=== PATIENT | male | born 1990 | race Two or more races ===

== ENCOUNTER 2024-10-01 16:35 | Emergency (ER) | payer OTHER ==
[~2024-10-01] VITALS: Ht 175.3 cm; Wt 81.7 kg
[2024-10-01] MEDS: SODIUM CHLORIDE 0.9% 1,000 ML IV ONE ×3 (16:45→22:40)
--- NOTE | 2024-10-01 16:48 | ED.PDOC ---
GI ASSESSMENT HPI Comments HPI: Poor Historian. 34-year-old male presents to emergency department for one day history of right sided mid axillary line below the ribcage pain that radiates to his right groin right testicle area. Patient has associated nausea and vomiting nonbilious nonbloody. Patient denies any diarrhea. Denies any urinary symptoms. He was able to void urine 2 hours ago that was normal in color. Pain is constant. Pain is better when he lays flat on his back. Patient tried some [place] at home for his pain without significant improvement. Past Medcial History: Denies any Past Surgical History: Left wrist surgery. REVIEW OF SYSTEMS: CONSTITUTIONAL: Denies acute: fever, diaphoresis, chills, generalized weakness. HEAD: Denies acute: headache, photophobia Eyes: Denies acute: Double vision, vision loss, eye pain, eye discharge. EARS: Denies acute: tinnitus, hearing loss, ear discharge, ear pain, THROAT: Denies acute: sore throat, swelling, difficulty swallowing , pain with swallowing, change in voice. NECK: Denies acute: neck pain, neck swelling, stiff neck. HEART: Denies acute : chest pain, palpitations, LUNGS: Denies acute: SOB, wheezing, cough, hemoptysis ABDOMEN: Denies acute: diarrhea, melena , hematemesis, hematochezia SKIN: Denies acute: rash, redness, lesions, itchiness. EXTREMITIES: Denies acute: calf pain, numbness, tingling, weakness, denies pain in extremity. Denies acute: Low back pain. Neuro: Denies acute: focal neurological deficit, motor or sensory focal neurological deficit, tremors, seizure like activity, confusion, dizziness, change in mental status, loss of bowel or bladder function, cauda equina like symptoms. : Denies acute: dysuria, hematuria, flank pain, increase in urinary frequency. PSYCH: Denies acute: hallucination, suicidal ideation, homicidal ideation. PHYSICAL EXAM: General: Moderate acute distress, awake and alert. Head: normocephalic, atraumatic. Neck: supple, trachea is midline, no swelling. Throat: Normal phonation. Eyes:, no erythema, no purulent discharge, no proptosis, no icterus. Heart: regular rate, regular rhythm, no significant murmur appreciated. Lungs: no apparent respiratory distress, Able to speak in full sentences. No wheezing, no rhonchi, no crackles. No stridors Clear to auscultation bilaterally. Abdomen: Right upper quadrant tender to palpation, non distended, soft, no guarding, no rebound, + bowel sounds. Neuro: Awake, Alert, oriented to name, self, situation, follows commands GCS=15. Speech is normal. Skin: no petechia, no purpura, no cyanosis, non-pale, not jaundice. Lower extremities: --no - Pitting edema no deformity, no focal swelling, no calf TTP. Makes eye contact. moves all four extremities. Face: no apparent facial droop. Minimal right CVA tenderness to percussion . Ambulating in the ED independently. ED course: As of this minutes 175, all labs are still pending. As of this minute 185, all labs are still pending. Chief Complaint: Abdominal Pain Time Seen by MD: 16:38 Reviewed Notes: Nurses Notes, Medications, Allergies Allergies: Coded Allergies: NO KNOWN ALLERGIES (Unverified , 10/01/24) Information Source: Patient Was a procedure done? Was a procedure done?: No X-Ray, Labs, Meds, VS Vital Signs Date Time Temp Pulse Resp B/P (MAP) Pulse Ox O2 Delivery O2 Flow Rate FiO2 10/01/24 19:50 98 Room Air* 0 21 10/01/24 19:41 97.9 70 16 140/90 (107) 98 97.9 10/01/24 16:43 97.7 72 20 140/82 (101) 100 Lab Test 10/01/24 23:44 10/01/24 21:31 10/01/24 20:36 10/01/24 19:11 Range/Units Lactic Acid Level 2.6 *H 2.8 *H 2.2 *H 0.4-2.0 mmol/L Urine Color Colorless Yellow Urine Clarity Turbid H Clear Urine pH 7.0 5.0-9.0 Urine Specific [place] 1.016 1.001-1.035 Urine Protein Negative Negative Urine Ketones Negative Negative Urine Blood 2+ H Negative /uL Urine Nitrite Negative Negative Urine Bilirubin Negative Negative Urine Urobilinogen Normal Negative mg/dL Urine Leukocyte Esterase Negative Negative /uL Urine RBC 141 0 - 3 /hpf Urine WBC 1 0 - 3 /hpf Urine Squamous Epithelial Cells Few <5 /hpf Urine Amorphous Crystals Mod None Seen /hpf Urine Bacteria None seen None Seen /hpf Urine Glucose Trace Normal mg/dL Urine Opiates Screen Neg NEGATIVE Urine Fentanyl Screen Neg NEGATIVE Urine Barbiturates Screen Neg NEGATIVE Urine Phencyclidine Screen Neg NEGATIVE Urine Amphetamines Screen Neg NEGATIVE Urine Benzodiazepines Screen Neg NEGATIVE Urine Cocaine Screen Neg NEGATIVE Urine Cannabinoids Screen Neg NEGATIVE Chlamydia trachomatis (MASTER) Pending Neisseria gonorrhoeae (MASTER) Pending Test 10/01/24 17:52 10/01/24 17:39 Range/Units SARS-CoV-2 Antigen (Rapid) Negative NEGATIVE White Blood Count 14.7 H 4.4-10.8 10^3/uL Red Blood Count 5.15 4.5-5.90 10^6/uL Hemoglobin 14.8 13.5-17.5 g/dL Hematocrit 43.7 41.0-53.0 % Mean Corpuscular Volume 84.8 80.0-100.0 fL Mean Corpuscular Hemoglobin 28.8 28.0-32.0 pg Mean Corpuscular Hemoglobin Concent 33.9 32.0-36.0 g/dL Red Cell Distribution Width 13.1 11.8-14.3 % Platelet Count 294 140-450 10^3/uL Mean Platelet Volume 7.3 6.9-10.8 fL Neutrophils (%) (Auto) 82.5 H 37.0-80.0 % Lymphocytes (%) (Auto) 10.1 10.0-50.0 % Monocytes (%) (Auto) 7.1 0.0-12.0 % Eosinophils (%) (Auto) 0.2 0.0-7.0 % Basophils (%) (Auto) 0.1 0.0-2.0 % Neutrophils # (Auto) 12.2 H 1.6-8.6 10 ^3/uL Lymphocytes # (Auto) 1.5 0.4-5.4 10 ^3/uL Monocytes # (Auto) 1.0 0-1.3 10 ^3/uL Eosinophils # (Auto) 0 0-0.8 10 ^3/uL Basophils # (Auto) 0 0-0.2 10 ^3/uL Nucleated Red Blood Cells 0.0 % Sodium Level 137 136-145 mmol/L Potassium Level 3.8 3.5-5.1 mmol/L Chloride Level 102 98-107 mmol/L Carbon Dioxide Level 29 20-31 mmol/L Anion Gap 6 5-15 Blood Urea Nitrogen 18 9-23 mg/dL Creatinine 1.08 0.700-1.30 mg/dL Glomerular Filtration Rate Calc 93 >90 mL/min BUN/Creatinine Ratio 16.7 10.0-20.0 Serum Glucose 99 74-106 mg/dL Lactic Acid Level 3.0 *H 0.4-2.0 mmol/L Calcium Level 9.9 8.7-10.4 mg/dL Total Bilirubin 0.4 0.2-1.0 mg/dL Aspartate Amino Transferase (AST) 38 13-40 U/L Alanine Aminotransferase (ALT) 117 H 7-40 U/L Alkaline Phosphatase 78 46-116 U/L Total Protein 6.3 5.7-8.2 g/dL Albumin 4.1 3.2-4.8 g/dL Lipase 25 12-53 U/L Current Medications Medications (Trade) Dose Ordered Sig/Regina Route Start Time Stop Time Status Last Admin Sodium Chloride 1,000 ml @ 1,000 mls/hr Q1H ONCE IV 10/01/24 16:45 10/01/24 17:44 DC 10/01/24 16:45 Ondansetron HCl (Zofran) 8 mg ONCE ONCE IV 10/01/24 16:45 10/01/24 16:47 DC 10/01/24 17:31 Acetaminophen/ Hydrocodone Bitart ([place] 5/325MG Tab) 1 tab ONCE ONCE PO 10/01/24 17:45 10/01/24 17:46 DC 10/01/24 17:42 Sodium Chloride 1,000 ml @ 1,000 mls/hr Q1H ONCE IV 10/01/24 19:30 10/01/24 20:29 DC 10/01/24 19:41 Ceftriaxone Sodium 50 ml @ 100 mls/hr ONCE ONCE IV 10/01/24 21:45 10/01/24 22:14 DC 10/01/24 22:24 Ketorolac Tromethamine (Toradol Injection) 30 mg ONCE ONCE IV 10/01/24 22:00 10/01/24 22:01 DC 10/01/24 22:23 Sodium Chloride 1,000 ml @ 1,000 mls/hr Q1H ONCE IV 10/01/24 22:30 10/01/24 23:29 DC 10/01/24 22:40 [place] [address] Ph: [phone] DIAGNOSTIC IMAGING Diagnostic Imaging Report : [id number] Signed PATIENT: DAMEON GANNON ACCT: [id number] UNIT: [id number] : 1990 LOC: ER ROOM / BED: / AGE / SEX: 34 / M ADM STATUS: REG ER SERVICE [id number] ORDERING PHYSICIAN: DANIEL MEHTA DO PROCEDURE(s): TESUS - TESTICULAR ULTRASOUND REASON: testicular pain ORDER NUMBER(s): [id number], ACCESSION NUMBER(s): [id number] ULTRASOUND OF SCROTUM AND CONTENTS. INDICATION: testicular pain COMPARISON: None TECHNIQUE: Multiple real-time grayscale sonographic and color and duplex Doppler images of the scrotum and its contents were obtained. FINDINGS: RIGHT TESTICLE: Measures 2.9 x 1.7 x 2.2 cm. Right epididymis measures 12.7 mm There appears to be a right-sided hydrocele and varicocele. LEFT TESTICLE: Measures 3.1 x 1.5 x 12.4 cm. There is a left-sided varicocele. Left epididymis measures 11.2 mm Both testicles demonstrate homogeneous echotexture without evidence of focal lesions. Subsequent color and duplex Doppler interrogation of the testes demonstrated symmetric normal vascular flow to both testicles. No focal areas of hyperemia were seen. IMPRESSION: 1. Right testicle measures 2.9 cm long. Left testicle measures 3.1 cm long. 2. Bilateral varicocele 3. Right-sided hydrocele 4. Normal blood flow in both testicles 5. No increased blood flow ATED BY: CHAD LEDEZMA Jr., DO DICTATED DATE/TIME: 10/01/241909 SIGNED BY: CHAD LEDEZMA Jr., SIGNED DATE/TIME: 10/01/241909 CC: [address] [id number] Ph: [phone] DIAGNOSTIC IMAGING Diagnostic Imaging Report : [id number] Signed PATIENT: DAMEON GANNON ACCT: [id number] UNIT: [id number] : 1990 LOC: ER ROOM / BED: / AGE / SEX: 34 / M ADM STATUS: REG ER SERVICE [id number] ORDERING PHYSICIAN: DANIEL METHA DO PROCEDURE(s): ABPL - CT AB PEL WO CON-NO ORAL OR IV REASON: R abd pain n/v ORDER NUMBER(s): [id number], ACCESSION NUMBER(s): [id number] Exam: CT CT AB PEL WO CON-NO ORAL OR IV History: R abd pain n/v Comparison Study: None available at time of dictation. TECHNIQUE: Multidetector CT of the abdomen was performed from lung bases to pubic symphysis. Imaging was performed without IV contrast. Axial, coronal and sagittal multiplanar reformats were obtained from the axial data set by the technologist. Radiation Dose Information: CT Dose: CTDI volume is 9.82 mGy. Dose-length product is 544.33 mGy*cm FINDINGS: Evaluation of solid organs is limited due to lack of intravenous contrast use. Findings: Lung Bases: No acute or significant lung base finding. Normal heart size. No pleural or pericardial effusion. Liver: The liver is normal in size. No focal lesions. Gallbladder and Biliary Tree: Unremarkable Spleen: Unremarkable Pancreas: The pancreas is grossly normal in appearance. Adrenal Glands: Unremarkable Kidneys: Punctate nonobstructing calculus left kidney. Bladder: Grossly unremarkable for degree of distention. Bowel: The stomach is grossly normal in appearance. Small bowel and colon are normal in caliber and distribution. The appendix is not visualized; however, no secondary findings of acute appendicitis identified. Ascites: Absent Lymphadenopathy: No mesenteric, retroperitoneal or periportal lymphadenopathy. Abdominal Wall and Mesentery: Unremarkable. Vasculature: The visualized abdominal aorta is normal in size and caliber. Evaluation of abdominal and pelvic vessels is limited due to lack of intravenous contrast. Pelvic Organs: Unremarkable Musculoskeletal: No aggressive focal bony lesions, acute fractures or dislocation. Soft tissues: Unremarkable IMPRESSION: 1. Punctate nonobstructing calculus left kidney. 2. No calcified gallstones 3. No findings of bowel obstruction 4. No free air or free fluid. Radiation optimization: All CT scans at this facility use at least one of these dose optimization techniques: automated exposure control mA and/or kV adjustment per patient size (includes targeted exams where dose is matched to clinical indication) or iterative reconstruction. ATED BY: CHAD LEDEZMA Jr., DO DICTATED DATE/TIME: 10/01/241713 SIGNED BY: CHAD LEDEZMA Jr., SIGNED DATE/TIME: 10/01/241713 CC: Time of 1ST Reevaluation: 21:33 Reevaluation 1ST: Improved Time of 2ND Reevaluation: 01:45 (Patient requested food to eat which we allowed him and he tolerated well. Patient's lactic acid was slightly elevated. His symptoms have improved. I was notified that the patient eloped) Reevaluation 2ND: Improved Patient Education/Counseling: Diagnosis, Treatment Family Education/Counseling: No Family Present Comments Patient presented with the above HPI. abdominal and testicular pain workup was initiated. patient was found with the above mentioned diagnosis. the following medications were ordered: IV fluid, hydrocodone, Zofran the following tests were ordered: US Testicular, CT abdomen and pelvis w/o contrast, EKG, drug screen, urinalysis, lipase, lactic acid, CMP, CBC, covid19 antigen test Patient ED course and VS have been stabilized. Patient has been reassessed in the ED and remained in a stable condition. Pertinent incidental findings were discussed with the patient and/or family. Patient/family voices understanding and is agreeable with plan. Patient has been observed in the ED adequate length of time to insure improvement/stability. Escalation of care considered: Consideration of escalation to observation or admission Patient was ADMITTED to the medicine team for further evaluation and treatment of their presentation. Patient was DISCHARGED home in a stable condition. All the reports of any imaging studies that were ordered by myself were reviewed by myself. Urinalysis shows RBCs. Patient could possibly have passed a small kidney stone that caused his initial symptoms. No obstructing kidney stones present on CT Departure 1 Departure Time of Disposition: 01:44 Impression: Primary Impression: Abdominal pain Additional Impressions: Hydrocele in adult Varicocele Eloped from emergency department Disposition: 07 LEFT AWOL/ELOPED Condition: Stable Additional Instructions: Patient eloped Discharged With: Self Critical Care Note Critical Care Time?: No Heart Score Heart Score: Heart Score Response (Comments) Value History N/A 0 EKG N/A 0 Age N/A 0 Risk Factors N/A 0 Troponin N/A 0 Total 0 I personally scribed for DANIEL MEHTA DO ([email or web address]) on 10/01/24 at 16:48. Electronically submitted by Susu Mccormick ([email or web address]). I personally scribed for DANIEL MEHTA DO ([email or web address]) on 10/01/24 at 20:54. Electronically submitted by Dave Ball ([email or web address]). I personally scribed for DANIEL MEHTA DO ([email or web address]) on 10/01/24 at 22:24. Electronically submitted by Dave Ball ([email or web address]). DANIEL MEHTA DO Oct 01, 2024 16:48
--- NOTE | 2024-10-01 17:16 | DVH ---
Exam: CT CT AB PEL WO CON-NO ORAL OR IV History: R abd pain n/v Comparison Study: None available at time of dictation. TECHNIQUE: Multidetector CT of the abdomen was performed from lung bases to pubic symphysis. Imaging was performed without IV contrast. Axial, coronal and sagittal multiplanar reformats were obtained fr om the axial data set by the technologist. Radiation Dose Information: CT Dose: CTDI volume is 9.82 mGy. Dose-length product is 544.33 mGy*cm FINDINGS: Evaluation of solid organs is limited due to lack of intravenous contrast use. Findings: Lung Bases: No acute or significant lung base finding. Normal heart size. No pleural or pericardial effusion. Liver: The liver is normal in size. No focal lesions. Gallbladder and Biliary Tree: Unremarkable Spleen: Unremarkable Pancreas: The pancreas is grossly normal in appearance. Adrenal Glands: Unremarkable Kidneys: Punctate nonobstructing calculus left kidney. Bladder: Grossly unremarkable for degree of distention. Bowel: The stomach is grossly normal in appearance. Small bowel and colon are normal in caliber and d istribution. The appendix is not visualized; however, no secondary findings of acute appendicitis id entified. Ascites: Absent Lymphadenopathy: No mesenteric, retroperitoneal or periportal lymphadenopathy. Abdominal Wall and Mesentery: Unremarkable. Vasculature: The visualized abdominal aorta is normal in size and caliber. Evaluation of abdominal a nd pelvic vessels is limited due to lack of intravenous contrast. Pelvic Organs: Unremarkable Musculoskeletal: No aggressive focal bony lesions, acute fractures or dislocation. Soft tissues: Unremarkable IMPRESSION: 1. Punctate nonobstructing calculus left kidney. 2. No calcified gallstones 3. No findings of bowel obstruction 4. No free air or free fluid. Radiation optimization: All CT scans at this facility use at least one of these dose optimization te chniques: automated exposure control mA and/or kV adjustment per patient size (includes targeted exa ms where dose is matched to clinical indication) or iterative reconstruction.
[2024-10-01] MEDS: ONDANSETRON HCL 4 MG/2 ML VIAL IV ONE (17:31)
[2024-10-01] MEDS: HYDROcodone-ACET 5/325MG TAB PO ONE (17:42)
[2024-10-01 18:23] LABS: Basophils # (auto) 0 10 ^3/uL (0-0.2); Basophils % (auto) 0.1 % (0.0-2.0); Eosinophils # (auto) 0 10 ^3/uL (0-0.8); Eosinophils % (auto) 0.2 % (0.0-7.0); Hematocrit 43.7 % (41.0-53.0); Hemoglobin 14.8 g/dL (13.5-17.5); Lymphocytes # (auto) 1.5 10 ^3/uL (0.4-5.4); Lymphocytes % (auto) 10.1 % (10.0-50.0); Mean Corpuscular Hemoglobin 28.8 pg (28.0-32.0); Mean Corpuscular Hgb Conc. 33.9 g/dL (32.0-36.0); Mean Corpuscular Volume 84.8 fL (80.0-100.0); Monocytes % (auto) 7.1 % (0.0-12.0); Neutrophils # (auto) 12.2 10 ^3/uL (1.6-8.6); Neutrophils % (auto) 82.5 % (37.0-80.0); Platelet Count (auto) 294 10^3/uL (140-450); Red Blood Cells 5.15 10^6/uL (4.5-5.90); Red Cell Distribution Width 13.1 % (11.8-14.3); White Blood Cell 14.7 10^3/uL (4.4-10.8)
[2024-10-01 18:30] LABS: Albumin 4.1 g/dL (3.2-4.8); Alkaline Phosphatase 78 U/L (46-116); Anion Gap 6 (5-15); Aspartate Aminotransferase 38 U/L (13-40); BUN/Creatinine Ratio 16.7 (10.0-20.0); Blood Urea Nitrogen 18 mg/dL (9-23); Calcium 9.9 mg/dL (8.7-10.4); Carbon Dioxide 29 mmol/L (20-31); Chloride 102 mmol/L (98-107); Glucose 99 mg/dL (74-106); Lipase 25 U/L (12-53); Potassium 3.8 mmol/L (3.5-5.1); Sodium 137 mmol/L (136-145)
[2024-10-01 18:31] LABS: Bilirubin, Total 0.4 mg/dL (0.2-1.0); Total Protein 6.3 g/dL (5.7-8.2)
[2024-10-01 18:57] LABS: Alanine Aminotransferase 117 U/L (7-40)
--- NOTE | 2024-10-01 19:13 | DVH ---
ULTRASOUND OF SCROTUM AND CONTENTS. INDICATION: testicular pain COMPARISON: None TECHNIQUE: Multiple real-time grayscale sonographic and color and duplex Doppler images of the scrotu m and its contents were obtained. FINDINGS: RIGHT TESTICLE: Measures 2.9 x 1.7 x 2.2 cm. Right epididymis measures 12.7 mm There appears to be a right-sided hydrocele and varicocele. LEFT TESTICLE: Measures 3.1 x 1.5 x 12.4 cm. There is a left-sided varicocele. Left epididymis measures 11.2 mm Both testicles demonstrate homogeneous echotexture without evidence of focal lesions. Subsequent color and duplex Doppler interrogation of the testes demonstrated symmetric normal vascula r flow to both testicles. No focal areas of hyperemia were seen. IMPRESSION: 1. Right testicle measures 2.9 cm long. Left testicle measures 3.1 cm long. 2. Bilateral varicocele 3. Right-sided hydrocele 4. Normal blood flow in both testicles 5. No increased blood flow
[2024-10-01 19:41] VITALS: BP 140/90; PULSE 70; RESP 16; TEMP 97.9
[2024-10-01 19:50] VITALS: O2SAT 98
[2024-10-01 20:50] LABS: Urine Bacteria None Seen /hpf (None Seen)
[2024-10-01 20:59] LABS: Urine Amorphous Crystal MOD /hpf (None Seen); Urine Blood 2+ /uL (Negative); Urine Clarity Turbid (Clear); Urine Color Colorless (Yellow); Urine Protein, UAD Negative (Negative); Urine Specific Gravity 1.016 (1.001-1.035); Urine Squamous Epithelial Cell FEW /hpf (<5); Urine Urobilinogen Normal (Negative); Urine WBC 1 /hpf (0 - 3)
[2024-10-01 21:11] LABS: Amphetamine Screen, Urine Neg (NEGATIVE); Barbiturate Scree,Urine Neg (NEGATIVE); Benzodiazephine Screen, Urine Neg (NEGATIVE); Cannabinoid Screen, Urine Neg (NEGATIVE); Cocaine Screen, Urine Neg (NEGATIVE); Opiate Scree,Urine Neg (NEGATIVE); Phencyclidine Screen, Urine Neg (NEGATIVE)
[2024-10-01 21:20] LABS: COVID19 ANTIGEN SOFIA FIA NEGATIVE (NEGATIVE)
[2024-10-01 22:18] LABS: Lactic Acid w/Reflex 2.8 mmol/L (0.4-2.0)
[2024-10-01] MEDS: KETOROLAC TROMETH 30 MG/ML 1ML VIAL IV ONE (22:23)
[2024-10-01] MEDS: cefTRIAXone 1GM/50ML D5W 50 ML IV ONE (22:24)
[2024-10-02 00:44] LABS: Lactic Acid w/Reflex 2.6 mmol/L (0.4-2.0)
[2024-10-04 11:06] LABS: Chlamydia Trachomatis, NAA Negative (Negative); Neisseria gonorrhoeae, NAA Negative (Negative)
== END 2024-10-02 01:27 | disposition left against medical advice (07) ==
LOC: ER 16:35
DX: N43.3 Hydrocele, unspecified (principal); I86.1 Scrotal varices; R10.9 Unspecified abdominal pain; Z98.890 Other specified postprocedural states; Z20.822 Contact with and (suspected) exposure to COVID-19; Z79.899 Other long term (current) drug therapy
CPT/HCPCS: 36415; 74176; 76870; 80053; 80307; 81001; 83605; 83690; 85025; 87426; 87491; 87591; 96361; 96365; 96375; 99285; J0696; J1885; J2405; J7030